=== PATIENT | male | born 2000 | race Caucasian/White ===

== ENCOUNTER 2019-03-31 19:05 | Emergency (ER) | payer OTHER, SELFPAY ==
[2019-03-31 19:05] VITALS: BP 165/82; PULSE 99; RESP 16; TEMP 37.3; O2SAT 98; BMI 21.1
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
[2019-03-31 20:14] VITALS: PULSE 110; RESP 16; O2SAT 97
== END 2019-03-31 20:14 | disposition home or self-care (01) ==
PROVIDERS: Emergency Provider Emergency Medicine
DX: S01.01XA Laceration without foreign body of scalp, initial encounter (principal); V59.9XXA Occupant (driver) (passenger) of pick-up truck or van injured in unspecified traffic accident, initial encounter; Y93.9 Activity, unspecified; Y92.410 Unspecified street and highway as the place of occurrence of the external cause; Y99.9 Unspecified external cause status
CPT/HCPCS: 99284